=== PATIENT | male | born 2000 | race Caucasian/White ===

== ENCOUNTER 2022-03-15 14:28 | Emergency (ER) | payer MEDICAID ==
[~2022-03-15] VITALS: Ht 175.3 cm; Wt 81.6 kg
[2022-03-15 14:46] VITALS: BP 118/71
== END 2022-03-15 17:38 | disposition home or self-care (01) ==
LOC: ER 14:28
DX: Z48.02 Encounter for removal of sutures (principal); Z53.21 Procedure and treatment not carried out due to patient leaving prior to being seen by health care provider

== ENCOUNTER 2022-08-30 08:49 | Emergency (ER) | payer MEDICAID ==
[~2022-08-30] VITALS: Ht 175.3 cm; Wt 90.0 kg
[2022-08-30] MEDS ORDERED: ACETAMINOPHEN 500 MG TAB PO ONE (13:00)
[2022-08-30] MEDS ORDERED: PENI500T2 PO (13:34)
[2022-08-30 13:40] VITALS: BP 118/77
[2022-08-30] MEDS ORDERED: PRED20TA2 PO (14:25)
[2022-08-30] MEDS ORDERED: methylPREDNISolone SOD SUCC 125 MG/2 ML VL IM ONE (14:30)
== END 2022-08-30 15:00 | disposition home or self-care (01) ==
LOC: ER 08:49
DX: J03.80 Acute tonsillitis due to other specified organisms (principal); B96.89 Other specified bacterial agents as the cause of diseases classified elsewhere; Z79.899 Other long term (current) drug therapy; Z79.2 Long term (current) use of antibiotics; Z20.822 Contact with and (suspected) exposure to COVID-19
CPT/HCPCS: 36415; 87070; 87426; 87804; 87880; 96372